=== PATIENT | male | born 1975 | race Two or more races ===

== ENCOUNTER 2021-06-05 05:38 | Emergency (ER) | payer OTHER ==
[~2021-06-05] VITALS: Ht 165.1 cm; Wt 74.8 kg
== END 2021-06-05 10:52 | disposition home or self-care (01) ==
LOC: ER 05:38
DX: F14.20 Cocaine dependence, uncomplicated (principal); R00.2 Palpitations; T40.5X Poisoning by, adverse effect of and underdosing of cocaine